=== PATIENT | male | born 1970 | race African-American/Black ===

== ENCOUNTER 2018-10-19 19:14 | Emergency (ER) | payer MEDICAID ==
[~2018-10-19] VITALS: Ht 172.7 cm; Wt 109.0 kg
[~2018-10-19 19:14] MED LIST: ASPI-1158 PO; CARB-213 OT; CARB400T8 PO; FAMO20TA8 PO; HYDR25TA PO; LEVE1000 PO; LORA-1083; LOSA50TA20 PO; PANT40TA4 PO; QUET300T5 PO; SERT25TA74 PO; SIMV20TA6 PO; TAMS0.4C31 MT; TAMS0.4C31 PO; TC1U15 TOP; TRAM50TA3; TRAZ-213 PO; TRAZ150T78 PO
[2018-10-19] MEDS ORDERED: SODIUM CHLORIDE 0.9% 1,000 ML IV ONE (20:31)
[2018-10-19] MEDS ORDERED: KETOROLAC 30MG/ML VIAL IV STA (20:31)
[2018-10-19 21:55] LABS: BASOPHILS % 0.4 % (0.0-2.0); EOSINOPHILS % 1.1 % (0.0-5.0); HEMATOCRIT. 46.1 % (42.0-52.0); HEMOGLOBIN. 15.5 g/dL (14.0-18.0); LYMPHOCYTES % 34.5 % (20.0-50.0); MEAN CORPUSCULAR HEMOGLOBIN 32.5 pg (28.0-32.0); MEAN CORPUSCULAR VOLUME 96.4 fL (80.0-94.0); MEAN PLATELET VOLUME 7.6 fl (7.4-10.4); MONOCYTES % 6.5 % (2.0-8.0); NEUTROPHILS % 57.5 % (40.0-76.0); PLATELET 240 x1000/uL (130-400); RED BLOOD CELL COUNT 4.78 mill/uL (4.7-6.1); RED CELL DISTRIBUTION WIDTH 13.7 % (11.6-14.6)
[2018-10-19 21:59] LABS: CHLORIDE 109 mEq/L (98-107)
[2018-10-19 23:52] VITALS: BP 171/96
== END 2018-10-19 23:53 | disposition home or self-care (01) ==
LOC: ER 19:14
DX: R51 Headache (principal); R20.0 Anesthesia of skin; I69.951 Hemiplegia and hemiparesis following unspecified cerebrovascular disease affecting right dominant side; I69.921 Dysphasia following unspecified cerebrovascular disease; G40.909 Epilepsy, unspecified, not intractable, without status epilepticus; Z79.899 Other long term (current) drug therapy
CPT/HCPCS: 36415; 70450; 80053; 82962; 85025; 93005; 96374; 99284; J1885; J7030

== ENCOUNTER 2019-04-04 00:30 | Inpatient (IN) | payer MEDICAID ==
[~2019-04-04] VITALS: Ht 170.2 cm; Wt 94.3 kg
[~2019-04-04 00:30] MED LIST changes: -LORA-1083; +LORA-1118; -LOSA50TA20 PO; +LOSA50TA41 PO
[2019-04-04] MEDS ORDERED: ASPIRIN 81MG TABLET PO ONE (02:30)
[2019-04-04 02:47] LABS: BASOPHILS % 0.4 % (0.0-2.0); EOSINOPHILS % 1.2 % (0.0-5.0); HEMATOCRIT. 43.5 % (42.0-52.0); LYMPHOCYTES % 38.6 % (20.0-50.0); MEAN CORPUSCULAR HEMOGLOBIN 33.1 pg (28.0-32.0); MEAN CORPUSCULAR VOLUME 96.2 fL (80.0-94.0); MEAN PLATELET VOLUME 7.8 fl (7.4-10.4); MONOCYTES % 8.4 % (2.0-8.0); NEUTROPHILS % 51.4 % (40.0-76.0); PLATELET 239 x1000/uL (130-400); RED BLOOD CELL COUNT 4.53 mill/uL (4.7-6.1); RED CELL DISTRIBUTION WIDTH 13.3 % (11.6-14.6)
[2019-04-04 02:50] LABS: CHLORIDE 110 mEq/L (98-107)
[2019-04-04 02:56] LABS: D-DIMER 0.19 mg/L FEU (<0.50); INR 0.9; PARTIAL THROMBOPLASTIN TIME 26.8 sec (23.4-31.0); PROTHROMBIN TIME 9.7 sec (9.6-11.0)
[2019-04-04 03:22] LABS: CLARITY URINE CLEAR (CLEAR); COLOR URINE YELLOW (YELLOW); KETONES URINE NEGATIVE (NEGATIVE); LEUKOCYTE ESTERASE URINE NEGATIVE (NEGATIVE); NITRITE URINE NEGATIVE (NEGATIVE); OCCULT BLOOD URINE NEGATIVE (NEGATIVE); PH URINE 5.5 (4.5-8.0); PROTEIN URINE NEGATIVE (NEGATIVE); SPECIFIC GRAVITY URINE 1.018 (1.005-1.030); UROBILINOGEN URINE 0.2 E.U./dL (0.2-1.0)
[2019-04-04] MEDS ORDERED: ONDANSETRON HCL 4MG/2ML INJ IV ONE (04:30)
[2019-04-04] MEDS ORDERED: MORPHINE SULFATE 4 MG/ML CPJ (NOT FOR IM USE) IV ONE (05:00)
[2019-04-04] MEDS ORDERED: CLOP75TA33 MT (05:37)
[2019-04-04] MEDS ORDERED: TOPI50TA MT (05:41)
[2019-04-04] MEDS ORDERED: LAMO50TA3 MT (05:42)
[2019-04-04] MEDS ORDERED: DICL50TA7 PO (05:42)
[2019-04-04] MEDS ORDERED: ALBU18HF2 IH (05:43)
[2019-04-04 14:23] VITALS: BP 145/75
[2019-04-04] MEDS ORDERED: DOCUSATE SODIUM 100MG CAPSULE PO PRN (14:45)
[2019-04-04] MEDS ORDERED: DIPHENHYDRAMINE 50MG/ML VIAL IV PRN (14:45)
[2019-04-04] MEDS ORDERED: IPRATROPIUM/ALBUTEROL 0.5-3(2.5)MG/3ML NEB INH PRN (14:45)
[2019-04-04] MEDS ORDERED: CLONIDINE 0.1MG TABLET PO PRN (14:45)
[2019-04-04] MEDS ORDERED: MAGNESIUM/ALUMINUM HYDROXIDE/SIMETHICONE 30ML UDC PO PRN (14:45)
[2019-04-04] MEDS ORDERED: HYDROCODONE/ACETAMINOPHEN 5/325MG TABLET PO PRN (14:45)
[2019-04-04] MEDS ORDERED: ONDANSETRON HCL 4MG/2ML INJ IV PRN (14:45)
[2019-04-04] MEDS ORDERED: ACETAMINOPHEN 325MG TABLET PO PRN (14:45)
[2019-04-04] MEDS ORDERED: GUAIFENESIN 200MG/10ML SUGAR FREE UDC PO PRN (14:45)
[2019-04-04] MEDS ORDERED: ENOXAPARIN 40MG/0.4ML SYR SUBCUT SCH (15:00)
[2019-04-04 16:30] VITALS: BP_SYST 138; BP_SYST 145; BP_DIAS 75; BP_DIAS 90
[2019-04-04 16:35] LABS: PHOSPHORUS 3.6 mg/dL (2.5-4.9)
== END 2019-04-04 17:50 | disposition left against medical advice (07) | DRG 243 ==
LOC: ER 00:30 → 8WST 05:05 → ENRESERV 13:09
PROVIDERS: ADMIT Internal Medicine; ATTEND Internal Medicine
DX: K21.9 Gastro-esophageal reflux disease without esophagitis (principal); I50.9 Heart failure, unspecified; E11.319 Type 2 diabetes mellitus with unspecified diabetic retinopathy without macular edema; R07.9 Chest pain, unspecified; F20.9 Schizophrenia, unspecified; E11.9 Type 2 diabetes mellitus without complications; J44.9 Chronic obstructive pulmonary disease, unspecified; I10 Essential (primary) hypertension; F31.9 Bipolar disorder, unspecified; M19.90 Unspecified osteoarthritis, unspecified site; F17.210 Nicotine dependence, cigarettes, uncomplicated; N40.0 Benign prostatic hyperplasia without lower urinary tract symptoms; E66.9 Obesity, unspecified; H54.7 Unspecified visual loss; R00.1 Bradycardia, unspecified; E78.5 Hyperlipidemia, unspecified; Z53.21 Procedure and treatment not carried out due to patient leaving prior to being seen by health care provider; Z86.73 Personal history of transient ischemic attack (TIA), and cerebral infarction without residual deficits; Z88.8 Allergy status to other drugs, medicaments and biological substances; Z79.899 Other long term (current) drug therapy; Z79.82 Long term (current) use of aspirin; Z68.32 Body mass index [BMI] 32.0-32.9, adult
CPT/HCPCS: 36415; 71045; 82962; 83735; 83880; 84100; 84484; 85379; 93005; 93970; 96374; 96375; 99285; J2270; J2405

== ENCOUNTER 2020-01-29 01:44 | Inpatient (IN) | payer MEDICAID ==
[~2020-01-29] VITALS: Ht 322.6 cm; Wt 95.3 kg
[~2020-01-29 01:44] MED LIST changes: +ALBU18HF2 IH; +CLOP75TA33 MT; +DICL50TA7 PO; +LAMO50TA3 MT; +SIMV-43 PO; -SIMV20TA6 PO; +TOPI50TA MT; -TRAZ-213 PO; +TRAZ-252 PO
[2020-01-29] MEDS ORDERED: NITROGLYCERIN 0.4MG TABLET SL SL PRN (02:30)
[2020-01-29] MEDS ORDERED: ASPIRIN 81MG TABLET PO ONE (02:30)
[2020-01-29 02:44] LABS: BASOPHILS % 0.4 % (0.0-2.0); EOSINOPHILS % 0.9 % (0.0-5.0); HEMATOCRIT. 40.9 % (42.0-52.0); HEMOGLOBIN. 14.3 g/dL (14.0-18.0); LYMPHOCYTES % 27.6 % (20.0-50.0); MEAN CORPUSCULAR HEMOGLOBIN 33.2 pg (28.0-32.0); MEAN CORPUSCULAR VOLUME 94.8 fL (80.0-94.0); MEAN PLATELET VOLUME 8.3 fl (7.4-10.4); MONOCYTES % 6.1 % (2.0-8.0); PLATELET 250 x1000/uL (130-400); RED BLOOD CELL COUNT 4.31 mill/uL (4.7-6.1); RED CELL DISTRIBUTION WIDTH 14.2 % (11.6-14.6)
[2020-01-29 02:46] LABS: CHLORIDE 112 mEq/L (98-107)
[2020-01-29] MEDS ORDERED: ONDANSETRON HCL 4MG/2ML INJ IV PRN (09:45)
[2020-01-29] MEDS ORDERED: MORPHINE SULFATE 2 MG/ML CPJ (NOT FOR IM USE) IV PRN (09:45)
[2020-01-29] MEDS ORDERED: IPRATROPIUM/ALBUTEROL 0.5-3(2.5)MG/3ML NEB HHN PRN (09:45)
[2020-01-29] MEDS ORDERED: ENOXAPARIN 40MG/0.4ML SYR SUBCUT SCH (09:45)
[2020-01-29] MEDS ORDERED: CLONIDINE 0.1MG TABLET PO PRN (09:45)
[2020-01-29 10:20] LABS: PHOSPHORUS 3.2 mg/dL (2.5-4.9)
[2020-01-29 18:45] VITALS: BP 104/58
[2020-01-29 20:00] VITALS: BP_SYST 113; BP_SYST 139; BP_DIAS 58; BP_DIAS 60
[2020-01-29 22:00] VITALS: BP 105/51
[2020-01-29] MEDS: ACETAMINOPHEN 325MG TABLET PO PRN (22:02)
[2020-01-29] MEDS: ENOXAPARIN 30MG/0.3ML SYR SUBCUT SCH (22:04)
[2020-01-29] MEDS ORDERED: DEXTROSE 50% WATER 50ML SYRINGE IV PRN (23:45)
[2020-01-30] VITALS (11 sets, daily range): BP systolic 73–153; BP diastolic 44–92
[2020-01-30] MEDS: ACETAMINOPHEN 325MG TABLET PO PRN (04:32)
[2020-01-30] MEDS: BLOOD SUGAR DIAGNOSTIC STRIP TEST SCH ×3 (06:55→17:24)
[2020-01-30 06:58] LABS: BASOPHILS % 0.3 % (0.0-2.0); EOSINOPHILS % 1.3 % (0.0-5.0); HEMATOCRIT. 41.8 % (42.0-52.0); HEMOGLOBIN. 14.2 g/dL (14.0-18.0); LYMPHOCYTES % 41.5 % (20.0-50.0); MEAN CORPUSCULAR HEMOGLOBIN 32.2 pg (28.0-32.0); MEAN CORPUSCULAR VOLUME 94.6 fL (80.0-94.0); MEAN PLATELET VOLUME 8.2 fl (7.4-10.4); MONOCYTES % 8.7 % (2.0-8.0); NEUTROPHILS % 48.2 % (40.0-76.0); PLATELET 235 x1000/uL (130-400); RED BLOOD CELL COUNT 4.42 mill/uL (4.7-6.1); RED CELL DISTRIBUTION WIDTH 14.1 % (11.6-14.6)
[2020-01-30] MEDS: INSULIN LISPRO 100 UNITS/ML SUBCUT SCH ×3 (07:20→17:20)
[2020-01-30 07:56] LABS: CHLORIDE 109 mEq/L (98-107)
[2020-01-30 08:04] LABS: HDL CHOLESTEROL 46 mg/dL (40-59)
[2020-01-30 08:05] LABS: LDL CHOLESTEROL 108 mg/dL (5-100)
[2020-01-30] MEDS: ENOXAPARIN 30MG/0.3ML SYR SUBCUT SCH (08:56)
[2020-01-30] MEDS ORDERED: LEVETIRACETAM 500 MG in SODIUM CHLORIDE 0.9% 100 ML IV SCH (09:30)
[2020-01-30] MEDS ORDERED: LORAZEPAM 2MG/ML CPJ IV PRN (09:30)
[2020-01-30] MEDS ORDERED: QUET100T PO (10:46)
[2020-01-30] MEDS ORDERED: LAMO25TA71 PO (10:46)
[2020-01-30] MEDS ORDERED: LEVETIRACETAM 500MG PREMIX 100 ML IV NR (11:00)
[2020-01-30] MEDS ORDERED: spiriva INH (14:19)
[2020-01-30] MEDS ORDERED: FAMO-135 MT (14:19)
[2020-01-30] MEDS ORDERED: NAPR500T7 MT (14:19)
[2020-01-30] MEDS ORDERED: FURO40TA5 MT (14:19)
[2020-01-30] MEDS ORDERED: LEVETIRACETAM 500MG PREMIX 100 ML IV SCH (21:00)
== END 2020-01-30 20:30 | disposition home or self-care (01) | DRG 203 ==
LOC: ER 01:44 → 3WST 04:46 → EDBEDREQTM 04:49 → EDBEDREQ 04:49 → ENRESERV 17:07
PROVIDERS: ADMIT Internal Medicine; ATTEND Internal Medicine
DX: M94.0 Chondrocostal junction syndrome [Tietze] (principal); E11.22 Type 2 diabetes mellitus with diabetic chronic kidney disease; R00.1 Bradycardia, unspecified; R07.89 Other chest pain; G40.909 Epilepsy, unspecified, not intractable, without status epilepticus; J44.9 Chronic obstructive pulmonary disease, unspecified; H54.7 Unspecified visual loss; I12.9 Hypertensive chronic kidney disease with stage 1 through stage 4 chronic kidney disease, or unspecified chronic kidney disease; N18.2 Chronic kidney disease, stage 2 (mild); Z88.6 Allergy status to analgesic agent; Z86.73 Personal history of transient ischemic attack (TIA), and cerebral infarction without residual deficits; Z79.51 Long term (current) use of inhaled steroids; Z79.899 Other long term (current) drug therapy; Z79.82 Long term (current) use of aspirin
CPT/HCPCS: 36415; 71045; 80053; 80061; 82962; 83036; 83735; 83880; 84100; 84443; 84484; 85025; 93005; 93306; 93970; 99285; J1650; J1953; J2270

== ENCOUNTER 2020-10-09 11:52 | Emergency (ER) | payer MEDICAID ==
[~2020-10-09] VITALS: Ht 172.7 cm; Wt 75.0 kg
[~2020-10-09 11:52] MED LIST changes: -ASPI-1158 PO; +ASPI-1406 PO; +FAMO-135 MT; -FAMO20TA8 PO; +FURO40TA5 MT; +LAMO25TA71 PO; -LAMO50TA3 MT; +NAPR500T7 MT; -PANT40TA4 PO; +PANT40TA51 PO; +QUET100T PO; -SERT25TA74 PO; -TAMS0.4C31 PO; +spiriva INH
[2020-10-09] MEDS ORDERED: VISCOUS LIDOCAINE 2% 15 ML UDC PO STA (12:26)
[2020-10-09] MEDS ORDERED: ONDANSETRON 4MG ODT PO STA (12:26)
[2020-10-09] MEDS ORDERED: MAGNESIUM/ALUMINUM HYDROXIDE/SIMETHICONE 30ML UDC PO STA (12:26)
[2020-10-09 12:41] LABS: BASOPHILS % 0.7 % (0.0-2.0); CHLORIDE 105 mEq/L (98-107); EOSINOPHILS % 1.9 % (0.0-5.0); HEMATOCRIT. 42.5 % (42.0-52.0); HEMOGLOBIN. 14.2 g/dL (14.0-18.0); LYMPHOCYTES % 40.6 % (20.0-50.0); MEAN CORPUSCULAR HEMOGLOBIN 31.7 pg (28.0-32.0); MEAN CORPUSCULAR VOLUME 94.7 fL (80.0-94.0); MEAN PLATELET VOLUME 7.2 fl (7.4-10.4); MONOCYTES % 8.8 % (2.0-8.0); PLATELET 316 x1000/uL (130-400); RED BLOOD CELL COUNT 4.49 mill/uL (4.7-6.1); RED CELL DISTRIBUTION WIDTH 13.7 % (11.6-14.6)
[2020-10-09] MEDS ORDERED: FAMO20TA8 MT (13:55)
[2020-10-09 14:00] VITALS: BP 128/78
== END 2020-10-09 14:00 | disposition home or self-care (01) ==
LOC: ER 11:52
DX: R10.13 Epigastric pain (principal); R11.0 Nausea; Z20.822 Contact with and (suspected) exposure to COVID-19; R05 Cough; R73.03 Prediabetes; I10 Essential (primary) hypertension; R79.89 Other specified abnormal findings of blood chemistry; Z79.899 Other long term (current) drug therapy
CPT/HCPCS: 36415; 71045; 80053; 83690; 84484; 85025; 93005; 99285; Q0162

== ENCOUNTER 2023-08-13 08:35 | Emergency (ER) | payer MEDICAID ==
[~2023-08-13] VITALS: Ht 175.3 cm; Wt 82.0 kg
[~2023-08-13 08:35] MED LIST changes: +FAMO20TA8 MT
[2023-08-13 08:50] VITALS: O2SAT 97
[2023-08-13 12:08] LABS: BASOPHILS % 0.3 % (0.0-2.0); EOSINOPHILS % 1.5 % (0.0-5.0); HEMOGLOBIN. 14.3 g/dL (14.0-18.0); LYMPHOCYTES % 36.5 % (20.0-50.0); MEAN CORPUSCULAR HEMOGLOBIN 32.6 pg (28.0-32.0); MEAN CORPUSCULAR HGB CONC 33.9 g/dL (31.0-37.0); MEAN CORPUSCULAR VOLUME 96.2 fL (80.0-94.0); MEAN PLATELET VOLUME 7.7 fl (7.4-10.4); MONOCYTES % 8.3 % (2.0-8.0); NEUTROPHILS % 53.4 % (40.0-76.0); PLATELET 217 x1000/uL (130-400); RED BLOOD CELL COUNT 4.37 mill/uL (4.7-6.1); RED CELL DISTRIBUTION WIDTH 13.7 % (11.6-14.6)
[2023-08-13 12:18] LABS: PROTHROMBIN TIME 10.3 sec (9.6-11.0)
[2023-08-13 14:36] VITALS: BP 131/75; PULSE 71; RESP 16; TEMP 98.1
[2023-08-13 15:39] LABS: ALANINE AMINOTRANSFERASE 49 IU/L (10-49); ALBUMIN 4.5 g/dL (3.2-4.8); ASPARTATE AMINOTRANSFERASE 25 IU/L (<34); BILIRUBIN TOTAL 0.6 mg/dL (0.1-1.0); CALCIUM 9.4 mg/dL (8.7-10.4); CARBON DIOXIDE 25 mEq/L (21-32); CHLORIDE 112 mEq/L (98-107); CREATININE 1.3 mg/dL (0.6-1.3); GLUCOSE 92 mg/dL (70-105); POTASSIUM 4.1 mEq/L (3.5-5.1); PROTEIN TOTAL 6.8 g/dL (6.0-8.3); SODIUM 144 mEq/L (136-145); UREA NITROGEN BLOOD 14 mg/dL (9-23)
[2023-08-13 15:41] LABS: ETHANOL BLOOD < 10 mg/dL (<10); TROPONIN I HIGH SENSITIVITY < 4 ng/L (3.0-53)
== END 2023-08-13 15:04 | disposition short-term general hospital (02) ==
LOC: ER 08:35
DX: R53.1 Weakness (principal); E11.9 Type 2 diabetes mellitus without complications; E78.00 Pure hypercholesterolemia, unspecified; I11.0 Hypertensive heart disease with heart failure; I50.9 Heart failure, unspecified; R51.9 Headache, unspecified; Z88.6 Allergy status to analgesic agent; Z88.5 Allergy status to narcotic agent; Z79.899 Other long term (current) drug therapy; Z86.59 Personal history of other mental and behavioral disorders
CPT/HCPCS: 80053; 80320; 85025; 85610; 84484; 36415; 71045; 70450; 93005; 99285; Z7610 ×2; G0480